=== PATIENT | male | born 1950 | race Hispanic/Latino ===

== ENCOUNTER → 2017-11-21 | Day surgery (SDC) | payer OTHER ==
[2017-11-20 09:51] LABS: BASOPHILS # (AUTO) 0.1 (0.0-0.1); BASOPHILS % 0.7 % (0.0-1.0); EOSINOPHILS # (AUTO) 0.2 (0.0-0.4); EOSINOPHILS % 2.7 % (0.0-6.0); HEMATOCRIT 46.4 % (38.2-49.6); LYMPHOCYTES # (AUTO) 1.2 (1.0-3.2); LYMPHOCYTES % 16.1 % (18.0-39.1); MEAN CORPUSCULAR HEMOGLOBIN 30.1 pg (28-32); MEAN CORPUSCULAR HGB CONC 32.3 g/dL (31-35); MEAN CORPUSCULAR VOLUME 93.2 fL (81-99); MONOCYTES # (AUTO) 0.5 (0.2-0.8); MONOCYTES % 6.4 % (4.4-11.3); NEUTROPHILS # (AUTO) 5.7 (2.1-6.9); NEUTROPHILS % 73.7 % (38.7-80.0); PLATELET COUNT 238 x10e3/uL (140-360); RED BLOOD COUNT 4.98 x10e6/uL (4.3-5.7); RED CELL DISTRIBUTION WIDTH 12.7 % (11.7-14.4)
--- NOTE | 2017-11-20 10:40 | Diagnostic Imaging Report ---
PROCEDURE: X-RAY CHEST, TWO VIEWS COMPARISON: None. INDICATIONS: PRE OPERATIVE FOR SURGERY FINDINGS: The lungs are well-inflated. No focal consolidation, pleural effusion, or pneumothorax. Cardiomediastinal contour and pulmonary vasculature are within normal limits. Surgical clips project over the right upper quadrant of the abdomen compatible with prior cholecystectomy. No acute osseous abnormality. CONCLUSION: No acute cardiopulmonary abnormality. Dictated by: Vladimir Bernstein M.D. on 11/20/2017 at 10:49 Electronically approved by: Vladimir Bernstein M.D. on 11/20/2017 at 10:49
[~2017-11-21] MED LIST: AMLODIPINE BESYL5 MG PO; ASPIRIN325 MG PO; BACLOFEN10 MG PO; BUPIVACAINE HCL 0.5% INJ 30 ML VIAL INJ ONE; CEFAZOLIN SOD 1 GM VIAL ONE; DEXAMETHASONE SOD PHOS INJ 4 MG/ML VIAL ONE; FENTANYL CITRATE/PF 100MCG/2 ML INJ ONE; KETOROLAC TROMETHAMINE 30 MG/ML VIAL ONE; LIDOCAINE HCL 2% LOCAL INJ 5 ML SDV VIAL INJ ONE; MIDAZOLAM HCL 2 MG/2 ML VIAL ONE; NAPROSYN500 MG PO; NAPROXEN500 MG PO; NORCO 7.5-3251 EACH PO; ONDANSETRON HCL INJ 2 MG/ML VIAL ONE; PROPOFOL IV EMULSION 10 MG/ML 20 ML VIAL ONE; SEVOFLURANE INHAL SOLN 250 ML PEN BTL ONE
[2017-11-21 11:15] VITALS: BP 131/67
--- NOTE | 2017-11-21 13:00 | Operative Report ---
DATE OF PROCEDURE: November 21, 2017 SHREDDING MACHINE KNIFE CHANGER: Edmund Roach PA-C The patient was brought to the operating room for induction of anesthesia. Throughout this case, my PA's assistance was necessary for retraction of soft tissue and positioning of the extremity. This allows for efficient and technically successful execution of the operation and is considered medically necessary. PREOPERATIVE DIAGNOSIS: Complication of internal fixation, right tibia. POSTOPERATIVE DIAGNOSIS: Complication of internal fixation, right tibia. PROCEDURE PERFORMED: Removal of intramedullary nail, right tibia. INDICATIONS: The patient is a 67-year-old gentleman who has end-stage arthritis of his right knee. He has a retained intramedullary nail from an old tibial fracture. In order to prepare for a right total knee replacement, we planned on hardware removal of the right tibial nail. The risks and benefits have been explained. He states he understands and wishes to proceed. DESCRIPTION OF PROCEDURE: The patient was brought into the operating room and placed under general anesthetic. His right lower extremity was prepped and draped in a sterile manner. A preoperative time out was performed. The extremity was exsanguinated and a proximal tourniquet was inflated to 300 mmHg. An incision was made over the anterior aspect of the right knee. This utilized the previous scar. Ethibond stitches in the patellar tendon were excised. The patellar tendon was incised in line with its fibers. A small curette was used to debride bone that had grown over the top of the intramedullary nail. Once this was carefully exposed, an extraction device was applied to the threads of the proximal nail. This nail was then removed with a mallet. Intraoperative x-rays confirmed no evidence of a fracture and complete removal of the hardware. The wound was irrigated and closed. A sterile bandage was applied. The patient was extubated and transported to the recovery room in stable condition. There was no blood loss and all needle and sponge counts were correct. Job#: [id number] JUAN
--- OUTSIDE RECORDS SUMMARY | 2017-11-28 12:15 | XMS REPORT ---
Author Author [facility] Address Unknown Phone Unavailable Care Team Providers Care Chicken Stuffer Name Role Phone VLADIMIR YANCEY Unavailable Unavailable Problems This patient has no known problems. Allergies, Adverse Reactions, Alerts This patient has no known allergies or adverse reactions. Medications This patient has no known medications. Results Test Description Test Time Test Comments Text Results Atomic Results Result Comments CHEST 2 VIEWS 2017-11-20 10:49:00 [place] [id number] Patient Name: MELISSA KERR MR #: [id number] : 1950 Age/Sex: 67/M Req #: [id number] [facility] Physician: Ordered by: VLADIMIR YANCEY MD Report #: [id number] Location: OR Room/Bed: Procedure: [id number] DX/CHEST 2 VIEWS Exam Date: 11/20/17 Exam Time: 1011 REPORT STATUS: Signed PROCEDURE: X-RAY CHEST, TWO VIEWS COMPARISON: None. INDICATIONS: PRE OPERATIVE FOR SURGERY FINDINGS: The lungs are well-inflated. No focal consolidation, pleural effusion, or pneumothorax. Cardiomediastinal contour and pulmonary vasculature are within normal limits. Surgical clips project over the right upper quadrant of the abdomen compatible with prior cholecystectomy. No acute osseous abnormality. CONCLUSION: No acute cardiopulmonary abnormality. Dictated by: Vladimir Meyer M.D. on 11/20/2017 at 10:49 Electronically approved by: Vladimir Meyer M.D. on 11/20/2017 at 10:49 Dictated By: VLADIMIR MEYER MD Transcribed By: ERIBERTO on 11/20/179 COPY TO: VLADIMIR YANCEY MD
== END | disposition home or self-care (01) ==
LOC: OR 06:27
PROVIDERS: ATTEND Specialist
DX: T84.498A Other mechanical complication of other internal orthopedic devices, implants and grafts, initial encounter (principal); M17.11 Unilateral primary osteoarthritis, right knee; M06.9 Rheumatoid arthritis, unspecified; M19.90 Unspecified osteoarthritis, unspecified site; R05 Cough; I10 Essential (primary) hypertension; Y83.8 Other surgical procedures as the cause of abnormal reaction of the patient, or of later complication, without mention of misadventure at the time of the procedure; Z01.810 Encounter for preprocedural cardiovascular examination; Z01.812 Encounter for preprocedural laboratory examination; Z01.818 Encounter for other preprocedural examination; Z96.652 Presence of left artificial knee joint
CPT/HCPCS: 20680; 36415; 71046; 76000; 85025; 93005; J0690; J1100; J1885; J2001; J2250; J2405

== ENCOUNTER 2018-01-29 06:40 | Observation (INO) | payer OTHER ==
[~2018-01-29] VITALS: Ht 167.6 cm; Wt 88.5 kg
[~2018-01-29 06:40] MED LIST changes: -BUPIVACAINE HCL 0.5% INJ 30 ML VIAL INJ ONE; -CEFAZOLIN SOD 1 GM VIAL ONE; -DEXAMETHASONE SOD PHOS INJ 4 MG/ML VIAL ONE; -FENTANYL CITRATE/PF 100MCG/2 ML INJ ONE; -KETOROLAC TROMETHAMINE 30 MG/ML VIAL ONE; -LIDOCAINE HCL 2% LOCAL INJ 5 ML SDV VIAL INJ ONE; -MIDAZOLAM HCL 2 MG/2 ML VIAL ONE; -ONDANSETRON HCL INJ 2 MG/ML VIAL ONE; -PROPOFOL IV EMULSION 10 MG/ML 20 ML VIAL ONE; +ROPIVACAINE 246.25 MG, EPINEPHRINE HCL 1:1000 0.5 MG, CLONIDINE HCL 0.08 MG, KETOROLAC ... INJ ONE; -SEVOFLURANE INHAL SOLN 250 ML PEN BTL ONE
[2018-01-29] MEDS ORDERED: CEFAZOLIN SOD 2 GM/D5W 50ML 50 ML IV ONE (07:23)
[2018-01-29] MEDS ORDERED: GABAPENTIN 300 MG CAP ONE (07:42)
[2018-01-29] MEDS ORDERED: CELECOXIB 200 MG CAP ONE (07:42)
[2018-01-29] MEDS ORDERED: DEXAMETHASONE SOD PHOS 10 MG/1 ML VIAL ONE (07:42)
[2018-01-29] MEDS ORDERED: BACITRACIN 50,000 UNIT VIAL ONE (08:22)
[2018-01-29] MEDS ORDERED: TRANEXAMIC ACID 1,000 MG/10 ML ML ONE ×2 (08:22→08:41)
[2018-01-29] MEDS ORDERED: KETOROLAC TROMETHAMINE 30 MG/ML VIAL IV PRN (10:15)
[2018-01-29] MEDS ORDERED: DOCUSATE SODIUM 100 MG CAP PO PRN (10:15)
[2018-01-29] MEDS ORDERED: ONDANSETRON HCL INJ 2 MG/ML VIAL IV PRN (10:15)
[2018-01-29] MEDS ORDERED: HYDROCODONE/APAP 5MG-325MG TAB PO PRN (10:15)
[2018-01-29] MEDS ORDERED: ACETAMINOPHEN 650 MG SUPP PR PRN (10:15)
[2018-01-29] MEDS ORDERED: HYDROCODONE/APAP 7.5MG-325MG 1 EA TAB PO PRN (10:15)
[2018-01-29] MEDS ORDERED: PROMETHAZINE HCL (IM) 25 MG/ML VIAL IM PRN (10:15)
[2018-01-29] MEDS ORDERED: DIPHENHYDRAMINE HCL INJ 50 MG/ML VIAL IM/IV PRN (10:15)
[2018-01-29] MEDS ORDERED: HYDROMORPHONE 2MG/ML 2 MG/ML ML ONE (10:43)
[2018-01-29] MEDS: ACETAMINOPHEN 1000 MG/100 ML IV SCH ×2 (12:00→18:02)
--- NOTE | 2018-01-29 13:04 | Operative Report ---
DATE OF PROCEDURE: January 29, 2018 [employer]YNAM[employer] DEVELOPER: Edmund Roach PA-C The patient was brought to the operating room for induction of anesthesia. Throughout this case, my PA's assistance was necessary for retraction of soft tissue and positioning of the extremity. This allows for efficient and technically successful execution of the operation and is considered medically necessary. PREOPERATIVE DIAGNOSIS: Osteoarthritis, right knee. POSTOPERATIVE DIAGNOSIS: Osteoarthritis, right knee. PROCEDURE: Right total knee arthroplasty, *previously operated knee. INDICATIONS: The patient is a 67-year-old gentleman who has end-stage arthritis of his right knee. He has failed conservative management and would like to proceed with a right total knee replacement. His past history is significant for a previous placement of an intramedullary nail. This was subsequently removed. He has gone on to heal these incisions without signs of infection. DESCRIPTION OF PROCEDURE: The patient was brought to the operating room and placed under general anesthetic. He received prophylactic antibiotics, a regional block, and transexamic acid in the holding area. His right lower extremity was prepped and draped in a sterile manner. A preoperative time out was performed. The extremity was exsanguinated, and a proximal tourniquet was inflated to 300 mmHg. An anterior approach with a medial parapatellar arthrotomy was performed. The previous tibial incision was incorporated. Care was taken to protect the patellar tendon insertion at the tibial tubercle. Soft-tissue releases were performed to bring the knee up into flexion. The meniscal remnants and marginal osteophytes were removed. An extramedullary cutting guide was used to resect the proximal tibia. The tibial baseplate was a size number 5. The central fin punch was impacted, and attention was directed towards the distal femur. An intramedullary cutting guide was used to resect the distal femur in 6 degrees of valgus and rotation referencing off of a combination of landmarks including Mark's line, the epicondylar axis and the posterior condyles. Throughout the case, a Vargas and Nephew Cherise II posterior stabilized knee system was used. The femoral component was a size number 6. The anterior and posterior cuts were made. Trial reductions were performed. A 9-mm ultracongruent tibial insert provided appropriate soft-tissue balancing in flexion and full extension. The patella was resurfaced with a 32-mm x 7.5-mm patellar button. The thickness was checked before and after resurfacing and was right at 22 mm. Patellar tracking was noted to be concentric. The trial implants were removed. A 100-mL premixed pericapsular injection was placed into the surrounding soft tissue. The knee was thoroughly irrigated with a shower-tip pulsatile lavage. The components were cemented into place using a single mix of high-viscosity Simplex cement preloaded with antibiotics. Care was taken to remove extravasated cement. The wound was further irrigated while the cement cured. The arthrotomy was closed with interrupted #1 Ethibond. The knee was put through flexion and extension to ensure a secure closure. The skin was closed with subcuticular Vicryl and gloria. A sterile bandage was applied. Estimated blood loss was minimal. All needle and sponge counts were correct. The patellar tendon insertion at the tibial tubercle remained sturdy and intact throughout the case. Job#: [id number]
--- NOTE | 2018-01-29 13:11 | Diagnostic Imaging Report ---
RIGHT KNEE - 2 IMAGES HISTORY: Osteoarthrosis, postop COMPARISON: None available. FINDINGS: Bones: No acute displaced fracture. No aggressive osseous lesion. Joints: Status post total knee arthroplasty. Soft tissues: Regional soft tissue swelling, air foci, an anterior metallic skin gloria. IMPRESSION: Status post total knee arthroplasty. Signed by: Dr. Wenceslao Bey D.O., M.M.M. on 01/29/2018 1:08 PM
[2018-01-29] MEDS ORDERED: PROPOFOL IV EMULSION 10 MG/ML 20 ML VIAL ONE (14:13)
[2018-01-29] MEDS ORDERED: ONDANSETRON HCL INJ 2 MG/ML VIAL ONE (14:13)
[2018-01-29] MEDS ORDERED: LIDOCAINE HCL 2% LOCAL INJ 5 ML SDV VIAL INJ ONE (14:13)
--- NOTE | 2018-01-29 15:50 | NUR ---
received to rm aaox3 no distress noted, denies pain at this time, dsg to right knee c/d/i, ivf infusing to r fa 20g no ss of infiltration noted, updated on poc voiced understanding, oriented to rm, call light in reach will continue to monitor
[2018-01-29 16:43] VITALS: BP 126/70
[2018-01-29] MEDS ORDERED: CELECOXIB 100 MG CAP PO SCH (17:00)
[2018-01-29 17:34] VITALS: BP 126/70
[2018-01-29] MEDS: CEFAZOLIN SOD 1 GM/D5W 50ML 50 ML IV SCH (18:00)
[2018-01-29] MEDS: ASPIRIN 325 MG TAB PO SCH (18:01)
[2018-01-29] MEDS: CELECOXIB 200 MG CAP PO SCH (18:01)
[2018-01-29] MEDS ORDERED: FENTANYL CITRATE/PF 100MCG/2 ML INJ ONE (18:02)
[2018-01-29] MEDS ORDERED: MIDAZOLAM HCL 2 MG/2 ML VIAL ONE (18:02)
[2018-01-29] MEDS: SODIUM CHLORIDE 0.9% 1000ML 1,000 ML IV SCH ×2 (18:39→20:14)
[2018-01-29 20:00] VITALS: BP 116/63
[2018-01-29] MEDS ORDERED: ZOLPIDEM TARTRATE 5 MG TAB PO PRN (21:00)
[2018-01-30] VITALS (7 sets, daily range): BP systolic 116–134; BP diastolic 65–71
[2018-01-30] MEDS: ACETAMINOPHEN 1000 MG/100 ML IV SCH ×2 (00:05→05:39)
[2018-01-30] MEDS: CEFAZOLIN SOD 1 GM/D5W 50ML 50 ML IV SCH ×2 (00:37→08:20)
[2018-01-30 05:46] LABS: HEMATOCRIT 38.4 % (38.2-49.6); HEMOGLOBIN 12.7 g/dL (14.0-18.0)
[2018-01-30] MEDS: SODIUM CHLORIDE 0.9% 1000ML 1,000 ML IV SCH (06:14)
--- NOTE | 2018-01-30 08:40 | NUR ---
patient resting in bed, AA0x3, pain 3/10 on right knee, call light in reach, no distress noted
[2018-01-30] MEDS: ASPIRIN 325 MG TAB PO SCH (08:46)
[2018-01-30] MEDS: CELECOXIB 200 MG CAP PO SCH (08:46)
[2018-01-30] MEDS ORDERED: NON-FORMULARY MEDICATION (Naproxen 500 MG) PO SCH (09:00)
[2018-01-30] MEDS ORDERED: AMLODIPINE BESYLATE 5 MG TAB PO SCH (09:00)
[2018-01-30] MEDS ORDERED: NAPROXEN 250 MG TAB PO PRN (09:15)
[2018-01-30] MEDS ORDERED: ACETAMINOPHEN 1000 MG/100 ML IV PRN (10:15)
[2018-01-30] MEDS ORDERED: ASPIRIN325 MG PO (12:25)
--- NOTE | 2018-01-30 14:16 | NUR ---
ROSI MET WITH PT AND VIA GUM ROLLING MACHINE TENDER REGARDING DC PLANS PT LIVES WITH HIS IN A HOUSE IN [place] PT HAS A WALKER WITH WHEELS AND 3 IN 1 COMMODE AT HOME DISCHARGE PLANS PRE-ARRANGED BY JOÃO AT DR YANCEY'S OFFICE FOLLOWS: CPM ORDERED THRU THER[facility] [phone] ROSI SPOKE WITH [facility] WHO CONFIRMS THAT THEY HAVE ORDERS AND WILL DELIVER HOME HEALTH AND PHYSCIAL THERAPY ARRANGED WITH [facility] [phone] ROSI SPOKE WITH RAKEL CASTELLANOS WHO CONFIRMS SHE HAS ORDERS AND WILL ADMIT PT ON 01/31 CLINICAL INFORMATION FAXED TO [phone]; CONFIRMATION REC'D
[2018-01-30] MEDS ORDERED: NORCO 7.5-3251 EACH PO (15:50)
--- NOTE | 2018-01-30 16:47 | NUR ---
patient discharged home, pain 03/25 on rt knee, prescription given, patient verbalized understanding about medications, side effects and f/up appointments, family at bed side giving ride, dressing is intact , not in any distress,IV Canula removed with tip intact , no redness or swelling noted, transported via wheelchair to [facility]
== END 2018-01-30 16:39 | disposition home health service (06) ==
LOC: OR 06:40 → PACU V 10:16 → MED/SURG 15:50
PROVIDERS: ADMIT Specialist; ATTEND Specialist
DX: M17.11 Unilateral primary osteoarthritis, right knee (principal); Z96.652 Presence of left artificial knee joint; I10 Essential (primary) hypertension; Z82.49 Family history of ischemic heart disease and other diseases of the circulatory system
CPT/HCPCS: 27447; 36415; 73560; 85014; 85018; 86850; 86900; 86920; 97116 ×2; 97161; C1713; G0378 ×2; G8978; G8979; J0131 ×2; J0171; J0690 ×3; J1100; J1170; J1885 ×2; J2001; J2250; J2405; J2704; J2795; J7030; P9016

== ENCOUNTER → 2018-09-26 | Outpatient (CLI) | payer MEDICARE ==
[~2018-09-26] MED LIST changes: +GABAPENTIN300 MG PO; +IBUPROFEN400 MG PO; +LEXAPRO10 MG PO; +OMEPRAZOLE40 MG PO; -ROPIVACAINE 246.25 MG, EPINEPHRINE HCL 1:1000 0.5 MG, CLONIDINE HCL 0.08 MG, KETOROLAC ... INJ ONE
--- NOTE | 2018-09-26 21:30 | Diagnostic Imaging Report ---
Labeled WBC Study Reason for exam: Mesh complication of knee prothesis. Right knee arthroplasty in 01/2018. Patient sustained a fall in 05/2018 with subsequent right knee pain that persists. Comparison: Report: The patient's own white blood cells were labeled with Tc-99m HMPAO 27.5 mCi by a commercial radiopharmacy. Images of the knees in orthogonal projections were obtained at 4 hours post administration of the labeled white blood cells. Increased tracer activity surrounds the femoral component of the right knee prosthesis and is seen at the inferior tip of the tibial component, as expected in prosthesis that was placed less than one year ago. Diffusely increased tracer overlies the distal portion of the femoral shaft anteriorly although the tibia and overlying soft tissue anteriorly appear normal on the lateral and medial projections of the femur. IMPRESSION: Cannot exclude soft tissue inflammatory process in soft tissue anterior to the distal portion of the right femur above the prosthesis. No convincing scan evidence of infection along the prosthesis in this prosthesis that was placed less than 12 months ago. Signed by: Dr. Lyn Garza M.D. on 09/26/2018 9:26 PM
== END ==
LOC: NM 07:20
PROVIDERS: ATTEND Specialist
DX: Z96.651 Presence of right artificial knee joint (principal); T84.092D Other mechanical complication of internal right knee prosthesis, subsequent encounter; M25.561 Pain in right knee
CPT/HCPCS: 78806; A9521; A9556; A9570

== ENCOUNTER 2018-10-22 07:05 | Inpatient (IN) | payer MEDICARE ==
[~2018-10-22] VITALS: Ht 160 cm; Wt 69.1 kg
[2018-10-22] MEDS ORDERED: ROPIVACAINE 246.25 MG, EPINEPHRINE HCL 1:1000 1ML 0.5 MG, CLONIDINE HCL 0.08 MG, KETORO... INJ ONE ×5 (07:30)
[2018-10-22] MEDS ORDERED: DEXAMETHASONE SOD PHOS 10 MG/1 ML VIAL ONE (07:52)
[2018-10-22] MEDS ORDERED: CELECOXIB 200 MG CAP ONE (07:52)
[2018-10-22] MEDS ORDERED: VANCOMYCIN 1GM/NS 250 ML 250 ML ONE (07:53)
[2018-10-22] MEDS ORDERED: GABAPENTIN 300 MG CAP ONE (07:53)
[2018-10-22] MEDS ORDERED: VANCOMYCIN HCL ONE (09:30)
[2018-10-22] MEDS ORDERED: TOBRAMYCIN 40 MG/ML 2ML VIAL ONE (09:30)
[2018-10-22] MEDS ORDERED: BACITRACIN 50,000 UNIT VIAL ONE (09:30)
[2018-10-22] MEDS ORDERED: TRANEXAMIC ACID 1,000 MG/10 ML ML ONE (09:30)
[2018-10-22] MEDS ORDERED: SODIUM CHLORIDE 0.9% 500ML 500 ML ONE (09:33)
[2018-10-22] MEDS ORDERED: SODIUM CHLORIDE 0.9% 250ML 250 ML ONE (10:02)
[2018-10-22] MEDS ORDERED: KETOROLAC TROMETHAMINE 30 MG/ML VIAL IV PRN (12:30)
[2018-10-22] MEDS ORDERED: HYDROCODONE/APAP 5MG-325MG TAB PO PRN (12:30)
[2018-10-22] MEDS ORDERED: DOCUSATE SODIUM 100 MG CAP PO PRN (12:30)
[2018-10-22] MEDS ORDERED: ZOLPIDEM TARTRATE 5 MG TAB PO PRN (12:30)
[2018-10-22] MEDS ORDERED: ACETAMINOPHEN 650 MG SUPP PR PRN (12:30)
[2018-10-22] MEDS ORDERED: ONDANSETRON HCL INJ 2MG/ML 2ML 2 MG/ML VIAL IV PRN (12:30)
[2018-10-22] MEDS ORDERED: PROMETHAZINE HCL (IM) 25 MG/ML VIAL INJ PRN (12:30)
[2018-10-22] MEDS ORDERED: DIPHENHYDRAMINE HCL INJ 50 MG/ML VIAL IM/IV PRN (12:30)
[2018-10-22] MEDS ORDERED: MORPHINE SULFATE INJ 4 MG/ML INJ 1ML ONE (12:55)
--- NOTE | 2018-10-22 13:23 | NUR ---
received report from PACU nurse, pt being transferred to room 103
--- NOTE | 2018-10-22 13:32 | NUR ---
received pt to room 103, pt laying in bed, awake, alert, in stable condition, daughter at bedside, will continue to assess
[2018-10-22] MEDS ORDERED: ROPIVACAINE 0.5% 5 MG/ML 30 ML SDV ONE (13:55)
[2018-10-22] MEDS ORDERED: LIDOCAINE 2% /EPINEPHRINE 20 ML SDV INJ ONE (13:55)
[2018-10-22 14:11] VITALS: BP 148/78
[2018-10-22] MEDS ORDERED: LIDOCAINE HCL 2% LOCAL INJ 5 ML SDV VIAL INJ ONE (14:32)
[2018-10-22] MEDS ORDERED: ONDANSETRON HCL INJ 2MG/ML 2ML 2 MG/ML VIAL ONE (14:32)
[2018-10-22] MEDS ORDERED: SEVOFLURANE INHAL SOLN 250 ML PEN BTL ONE (14:32)
[2018-10-22] MEDS ORDERED: PROPOFOL IV EMULSION 10 MG/ML 20 ML VIAL ONE (14:32)
[2018-10-22] MEDS ORDERED: DEXAMETHASONE SOD PHOS INJ 4 MG/ML VIAL ONE (14:32)
--- NOTE | 2018-10-22 14:35 | Diagnostic Imaging Report ---
EXAMINATION: KNEE RIGHT 1-2 VIEWS INDICATION: Postoperative COMPARISON: Right knee radiographs of 01/29/2018 FINDINGS: Portable AP and lateral radiographs of the right knee demonstrate postoperative changes of right total knee arthroplasty revision. Alignment is near-anatomic. No unexpected fracture. Postoperative subcutaneous emphysema and small joint effusion. Surgical skin gloria in place. IMPRESSION: Anatomic alignment status post right total knee arthroplasty revision. Signed by: Jonny Whitaker MD on 10/22/2018 2:32 PM
[2018-10-22 14:37] VITALS: BP 148/78
[2018-10-22] MEDS: HYDROCODONE/APAP 7.5MG-325MG 1 EA TAB PO PRN (14:49)
--- NOTE | 2018-10-22 15:00 | NUR ---
DR MCCRAY AND DR JUÁREZ NOTIFIED OF NEW ADMISSION
[2018-10-22 16:04] VITALS: BP 135/74
[2018-10-22 16:22] LABS: BASOPHILS % 0.1 % (0.0-1.0); HEMATOCRIT 37.1 % (38.2-49.6); HEMOGLOBIN 11.9 g/dL (14.0-18.0); LYMPHOCYTES # (AUTO) 0.6 (1.0-3.2); LYMPHOCYTES % 4.1 % (18.0-39.1); MEAN CORPUSCULAR HEMOGLOBIN 26.7 pg (28-32); MEAN CORPUSCULAR HGB CONC 32.1 g/dL (31-35); MEAN CORPUSCULAR VOLUME 83.4 fL (81-99); MONOCYTES # (AUTO) 0.2 (0.2-0.8); MONOCYTES % 1.2 % (4.4-11.3); NEUTROPHILS # (AUTO) 12.8 (2.1-6.9); NEUTROPHILS % 94.2 % (38.7-80.0); PLATELET COUNT 296 x10e3/uL (140-360); RED BLOOD COUNT 4.45 x10e6/uL (4.3-5.7); RED CELL DISTRIBUTION WIDTH 14.9 % (11.7-14.4)
[2018-10-22 16:42] LABS: ALANINE AMINOTRANSFERASE 17 IU/L (0-55); ALBUMIN 3.2 g/dL (3.5-5.0); ALBUMIN/GLOBULIN RATIO 0.8 (0.8-2.0); ALKALINE PHOSPHATASE 55 IU/L (40-150); ANION GAP 13.3 mmol/L (8-16); BLOOD UREA NITROGEN 15 mg/dL (7-26); BUN/CREATININE RATIO 17 (6-25); CALCIUM 9.3 mg/dL (8.4-10.2); CARBON DIOXIDE 27 mmol/L (22-29); CHLORIDE 100 mmol/L (98-107); CREATININE, SERUM 0.86 mg/dL (0.72-1.25); EST GLOMERULAR FILTRATION RATE > 60 ML/MIN (60-); GLUCOSE 204 mg/dL (74-118); POTASSIUM 5.3 mmol/L (3.5-5.1); SODIUM 135 mmol/L (136-145)
[2018-10-22] MEDS: ACETAMINOPHEN 1000 MG/100 ML IV SCH (17:15)
[2018-10-22] MEDS: ASPIRIN 325 MG TAB PO SCH (17:15)
[2018-10-22] MEDS: SODIUM CHLORIDE 0.9% 1000ML 1,000 ML IV SCH ×2 (17:15→20:09)
[2018-10-22] MEDS: CELECOXIB 200 MG CAP PO SCH (17:15)
--- NOTE | 2018-10-22 17:31 | NUR ---
DR SAMUELS OFFICE PREARRANGED FOLLOWING DISCHARGE PLAN OF: GOING HOME TO [address] [place] [address], [place] [address] PHONE [phone] HOME HEALTH WITH HOME CARE PROVIDERS CONFIRMED WITH [facility] [phone] DME 3 IN ONE COMMODE. AND CPM TO BE PROVIDED BY [facility] [phone] PT ALREADY HAS A WALKER AND WAS NOTIFIED HAS TO BE PRESENT FOR DISCHARGE.
[2018-10-22] MEDS ORDERED: MIDAZOLAM HCL 2 MG/2 ML VIAL ONE (18:36)
[2018-10-22] MEDS ORDERED: FENTANYL CITRATE/PF 100MCG/2 ML INJ ONE (18:36)
--- NOTE | 2018-10-22 18:44 | Operative Report ---
DATE OF PROCEDURE: 10/22/2018 SURGEON: Vladimir Gilmore MD OUTPATIENT PSYCHIATRIST: Edmund Roach, certified PA. PREOPERATIVE DIAGNOSIS: Infection, right total knee arthroplasty. POSTOPERATIVE DIAGNOSIS: Infection, right total knee arthroplasty. PROCEDURES: Right knee resection arthroplasty, extensive sharp irrigation and debridement, placement of temporary antibiotic prosthesis. INDICATIONS: The patient is a 68-year-old gentleman, who is status post a right total knee replacement in January 2018. He had a fall in June after which he had increased right knee pain. Since that time, he has been unable to make progress. He has noted to have chronic swelling around the knee. We have sent 2 different aspirations for culture, which have come back negative. He has an elevated erythrocyte sedimentation rate and a C-reactive protein. X-rays are unremarkable. Because of his limited motion and persistent pain, we have recommended right knee wound exploration with resection arthroplasty as indicated. The risks and benefits were explained. The possibility of a second-stage reconstruction was explained. He stated he understood and wished to proceed. PROCEDURE IN DETAIL: The patient was brought to the operating room. Antibiotics were held. He received tranexamic acid and a regional block in the holding area. His right lower extremity was prepped and draped in a sterile manner. A preoperative time-out was performed. The extremity was exsanguinated and a proximal tourniquet was inflated to 300 mmHg. An anterior incision utilizing the previous scar was made. Medial parapatellar arthrotomy was performed. No alex purulence was encountered. There was markedly thickened synovium throughout the knee. Synovial soft tissue was sent for frozen section. A complete synovectomy was performed. This allowed better mobilization of the knee. A lateral release was necessary for the patella to sharmila. The knee was brought up into flexion. Further synovectomy was performed. The soft tissue pathology report came back showing evidence of acute inflammation, but not consistent with any type of septic knee. Based on the gross findings, I elected to proceed with a resection arthroplasty. There was some fibrinous erosion into the lateral femoral condyle and the anterior tibia. Multiple cultures were sent prior to administering antibiotics. The distal femoral and proximal tibial components were carefully removed with osteotome and bone punches. The bone was debrided. There was further evidence that there was inflammatory reaction behind the prosthesis. The patellar component was also removed. All remaining bone cement was removed. The knee was thoroughly irrigated with a shower tip pulsatile lavage. The antibiotic prosthesis was opened on the back table. Palacos cement preloaded with gentamicin, but augmented with tobramycin and vancomycin was prepared on the back table. The temporary antibiotic prosthesis was cemented into place. The knee was brought out into full extension. The arthrotomy was closed with interrupted 0 Ethibond stitches. The skin was closed with subcuticular Vicryl and gloria. A sterile bandage and a knee immobilizer were applied. The patient was extubated and transported to the recovery room in stable condition. Blood loss was minimal and all needle and sponge counts were correct. Vladimir Gilmore MD DR/KATE /[id number]
--- NOTE | 2018-10-22 18:52 | NUR ---
report given to oncoming night warehouse selector RN, pt resting in bed, no distress noted, call light within reach, in stable condition.
--- NOTE | 2018-10-22 19:22 | Diagnostic Imaging Report ---
EXAMINATION: CHEST XRAY LINE PLACEMENT INDICATION: ^line placement ^[id number] ^1900 ^Y COMPARISON: Chest radiograph 11/20/2017 FINDINGS: AP view TUBES and LINES: Interval placement of a right PICC with tip overlying the mid SVC. LUNGS: Lungs are well inflated. Lungs are clear. There is no evidence of pneumonia or pulmonary edema. PLEURA: No pleural effusion or pneumothorax. HEART AND MEDIASTINUM: The cardiomediastinal silhouette is unremarkable.. BONES AND SOFT TISSUES: No acute osseous lesion. Soft tissues are unremarkable. UPPER ABDOMEN: No free air under the diaphragm. IMPRESSION: Interval placement of a right PICC with tip overlying the mid SVC. Recommend advancement of 2.5 cm. No pneumothorax. Signed by: Dr. Belinda Cotter M.D. on 10/22/2018 7:18 PM
[2018-10-22 19:30] VITALS: BP 135/74
[2018-10-22] MEDS: GABAPENTIN 300 MG CAP PO SCH (20:09)
[2018-10-22 20:22] VITALS: BP 135/72
[2018-10-22] MEDS: VANCOMYCIN 1GM/NS 250 ML 250 ML IV SCH (22:44)
[2018-10-23] VITALS (8 sets, daily range): BP systolic 118–139; BP diastolic 66–71
[2018-10-23] MEDS: ACETAMINOPHEN 1000 MG/100 ML IV SCH ×2 (00:04→05:10)
--- NOTE | 2018-10-23 01:11 | Consultation ---
DATE OF CONSULTATION: REASON FOR CONSULTATION: Infected knee. HISTORY OF PRESENT ILLNESS: This patient is a very pleasant 68-year-old male, who underwent surgery, total knee replacement back in January. The patient was doing well until about couple months ago, does have some pain in the knee, but then it has become red and swollen. He went to see Dr. Barrientos and the patient was diagnosed with infection. He was admitted. The patient underwent first step of two stages knee replacement. I was asked to see him to make recommendation in terms of antibiotic. The patient is currently lying in bed comfortably, and has no complaints. His family is at the bedside. At the present time, he denies any fever, chills, nausea, vomiting, diarrhea, urgency, frequency, or skin rash or any other joint problem. He had the surgery in January 29, 2018. MEDICATIONS: He is currently on Crosby, Protonix, Neurontin, Lexapro, Norvasc, Toradol, Celebrex, acetaminophen, aspirin, Colace, benadryl, vancomycin. ALLERGIES: NKA. LABORATORY DATA: White count 13.6, hemoglobin 11.9, and hematocrit 37. Electrolytes still pending. He had surgery earlier today as mentioned above. I do not have the report yet. Also, cultures were sent intraoperatively. PHYSICAL EXAMINATION: GENERAL: He is currently alert and oriented, does not seem to be in acute distress. VITAL SIGNS: Stable, currently afebrile. HEENT: He is not icteric. NECK: Supple. CHEST: Clear bilateral. HEART: S1 and S2. No S3, S4, or murmur. ABDOMEN: Soft. Bowel sounds present. No tenderness. No hepatosplenomegaly. EXTREMITIES: No edema. SKIN: There is no rash. All his symptoms within normal limits. IMPRESSION: Infected knee, which was removed. Agree with vancomycin, await culture and sensitivity to modify. Obtain sedimentation rate and C-reactive protein. We will talk with case management. We will discuss with Surgery, discussed with the patient answered all his question. MD ALMA ROSA Wright/KATE /[id number]
[2018-10-23 05:48] LABS: BASOPHILS % 0.1 % (0.0-1.0); EOSINOPHILS % 0.1 % (0.0-6.0); HEMATOCRIT 34.2 % (38.2-49.6); HEMOGLOBIN 10.7 g/dL (14.0-18.0); LYMPHOCYTES # (AUTO) 0.8 (1.0-3.2); LYMPHOCYTES % 6.7 % (18.0-39.1); MEAN CORPUSCULAR HEMOGLOBIN 26.2 pg (28-32); MEAN CORPUSCULAR HGB CONC 31.3 g/dL (31-35); MEAN CORPUSCULAR VOLUME 83.6 fL (81-99); MONOCYTES # (AUTO) 0.7 (0.2-0.8); NEUTROPHILS # (AUTO) 10.2 (2.1-6.9); NEUTROPHILS % 86.7 % (38.7-80.0); PLATELET COUNT 302 x10e3/uL (140-360); RED BLOOD COUNT 4.09 x10e6/uL (4.3-5.7); RED CELL DISTRIBUTION WIDTH 14.6 % (11.7-14.4)
[2018-10-23 06:14] LABS: ALANINE AMINOTRANSFERASE 27 IU/L (0-55); ALBUMIN 2.8 g/dL (3.5-5.0); ALBUMIN/GLOBULIN RATIO 0.8 (0.8-2.0); ALKALINE PHOSPHATASE 50 IU/L (40-150); ANION GAP 12.2 mmol/L (8-16); BLOOD UREA NITROGEN 11 mg/dL (7-26); BUN/CREATININE RATIO 15 (6-25); CALCIUM 8.9 mg/dL (8.4-10.2); CARBON DIOXIDE 25 mmol/L (22-29); CHLORIDE 106 mmol/L (98-107); CREATININE, SERUM 0.71 mg/dL (0.72-1.25); EST GLOMERULAR FILTRATION RATE > 60 ML/MIN (60-); GLUCOSE 139 mg/dL (74-118); POTASSIUM 4.2 mmol/L (3.5-5.1); SODIUM 139 mmol/L (136-145)
--- NOTE | 2018-10-23 07:07 | NUR ---
pt awake resp even and unlabored a this time no distress noted, pt has family at beside , pt able to make needs known call light in reach.
[2018-10-23] MEDS: AMLODIPINE BESYLATE 5 MG TAB PO SCH (08:58)
[2018-10-23] MEDS: GABAPENTIN 300 MG CAP PO SCH ×3 (08:58→20:29)
[2018-10-23] MEDS: ASPIRIN 325 MG TAB PO SCH ×2 (08:58→16:58)
[2018-10-23] MEDS: CELECOXIB 200 MG CAP PO SCH ×2 (08:58→16:58)
[2018-10-23] MEDS: ESCITALOPRAM OXALATE 10 MG TAB PO SCH (08:58)
[2018-10-23] MEDS: PANTOPRAZOLE SOD 40 MG TABEC PO SCH (08:58)
[2018-10-23] MEDS: HYDROCODONE/APAP 7.5MG-325MG 1 EA TAB PO PRN ×2 (09:05→16:58)
[2018-10-23] MEDS ORDERED: ACETAMINOPHEN 1000 MG/100 ML IV PRN (12:30)
[2018-10-23] MEDS: VANCOMYCIN 1GM/NS 250 ML 250 ML IV SCH (12:30)
--- NOTE | 2018-10-23 13:35 | NUR ---
Visit made by the Spiritual Care Department Pastoral Visitor, Alina Leach. PV provided pastoral presence, prayer, hospitality, and supportive listening. Pastoral Visitor informed pt/family of the scope of [employer] Services and availability. JAELYN HUNT [employer] Spiritual Care Department O: [phone] Pager: [phone] ([phone] number calling from)
--- NOTE | 2018-10-23 16:36 | NUR ---
ORDERS RECEIVED FOR IV VANCOMYCIN Q 12 AT HOME X 8 WEEKS CHOICE LETTER SIGNED BY PT FOR [facility] COPY OF CHOICE LETTER TO PT AND ORIGINAL ON CHART PATIENT ADDRESS WHERE SERVICE WILL BE RECEIVED: [address] [place] [id number] PATIENT CONTACT NUMBER: [phone] NAME OF HOME HEALTH COMPANY: [facility] TELEPHONE/FAX NUMBER OF COMPANY: [phone] ADDRESS OF COMPANY: [address] [place] [address] SERVICES TO RECEIVE: VANCOMYCIN 1 GM IV Q 12 HRS X 8 WEEKS WEEKLY CBC, CHEM PANEL, VANCO TROUGH ANTICIPATED DATE SERVICES WILL BEGIN: Monday10/25/18 PLEASE CALL THE COMPANY ABOVE IF YOU HAVE NOT RECEIVED A CALL TO SCHEDULE A HOME VISIT WITHIN 24 HOURS OF DISCHARGE
--- NOTE | 2018-10-23 19:00 | NUR ---
RECEIVED PATIENT IN BEDSIDE SHIFT REPORT. PATIENT REPORTS VERY MINIMAL PAIN. NO S&S OF DISTRESS NOTED. BED LOCKED IN LOWEST POSITION, SIDE RAILS UPX2, CALL LIGHT IN REACH.
--- NOTE | 2018-10-23 19:25 | NUR ---
Report given to oncoming nurse pt stable.
[2018-10-24 00:13] VITALS: BP 116/66
[2018-10-24 04:52] VITALS: BP 134/80
--- NOTE | 2018-10-24 05:30 | NUR ---
PATIENT RESTING, BREATHING EVEN AND NON-LABORED. NO PAIN REPORTED. CALL LIGHT IN REACH.
[2018-10-24 05:59] LABS: BASOPHILS # (AUTO) 0.1 (0.0-0.1); BASOPHILS % 0.6 % (0.0-1.0); EOSINOPHILS # (AUTO) 0.2 (0.0-0.4); EOSINOPHILS % 2.4 % (0.0-6.0); HEMATOCRIT 34.3 % (38.2-49.6); HEMOGLOBIN 10.8 g/dL (14.0-18.0); LYMPHOCYTES # (AUTO) 1.1 (1.0-3.2); LYMPHOCYTES % 13.4 % (18.0-39.1); MEAN CORPUSCULAR HEMOGLOBIN 26.3 pg (28-32); MEAN CORPUSCULAR HGB CONC 31.5 g/dL (31-35); MEAN CORPUSCULAR VOLUME 83.7 fL (81-99); MONOCYTES # (AUTO) 0.7 (0.2-0.8); NEUTROPHILS # (AUTO) 6.3 (2.1-6.9); NEUTROPHILS % 75.4 % (38.7-80.0); PLATELET COUNT 294 x10e3/uL (140-360)
[2018-10-24 06:19] LABS: ANION GAP 11.9 mmol/L (8-16); BLOOD UREA NITROGEN 14 mg/dL (7-26); BUN/CREATININE RATIO 18 (6-25); CALCIUM 8.8 mg/dL (8.4-10.2); CARBON DIOXIDE 29 mmol/L (22-29); CHLORIDE 102 mmol/L (98-107); CREATININE, SERUM 0.79 mg/dL (0.72-1.25); EST GLOMERULAR FILTRATION RATE > 60 ML/MIN (60-); GLUCOSE 106 mg/dL (74-118); POTASSIUM 3.9 mmol/L (3.5-5.1); SODIUM 139 mmol/L (136-145)
--- NOTE | 2018-10-24 07:10 | NUR ---
RECEIVED PATIENT RESTING IN BED NO SIGNS OF DISTRESS. BED LOW, WHEELS LOCKED, SIDE RAILS X2. CALL LIGHT IN REACH WILL CONTINUE TO MONITOR PATIENT.
[2018-10-24 07:33] VITALS: BP_SYST 135; BP_SYST 99; BP_DIAS 46; BP_DIAS 77
[2018-10-24] MEDS: AMLODIPINE BESYLATE 5 MG TAB PO SCH (08:03)
[2018-10-24] MEDS: ESCITALOPRAM OXALATE 10 MG TAB PO SCH (08:03)
[2018-10-24] MEDS: GABAPENTIN 300 MG CAP PO SCH ×2 (08:03→14:10)
[2018-10-24] MEDS: PANTOPRAZOLE SOD 40 MG TABEC PO SCH (08:03)
[2018-10-24] MEDS: CELECOXIB 200 MG CAP PO SCH ×2 (08:03→16:46)
[2018-10-24] MEDS: ASPIRIN 325 MG TAB PO SCH ×2 (08:03→16:46)
[2018-10-24] MEDS ORDERED: ONDANSETRON HCL 4 MG ORAL DISINTEGRATING TAB PO PRN (08:30)
[2018-10-24 08:36] VITALS: BP 135/77
--- NOTE | 2018-10-24 09:18 | NUR ---
EDUCATED ABOUT IMM, SIGNED, FILED IN CHART, WITH COPY LEFT WITH FAMILY AT BEDSIDE.
--- NOTE | 2018-10-24 10:13 | NUR ---
PATIENT A/O 3, EVEN RESPIRATIONS ON RA. LUNG SOUNDS CLEAR TO AUSCULTATION. BOWEL SOUNDS PRESENT. NO EDEMA. RIGHT KNEE DRESSING C/D/I. IMMOBILIZER IN PLACE. IVAN HOSE AND FOOT PUMPS BILATERALLY. RIGHT UA PICC LINE INTACT. RIGHT FA [address]. VS STABLE. PATIENT AMBULATES WITH WALKER. CALL LIGHT IN REACH WILL CONTINUE TO MONITOR PATIENT.
[2018-10-24] MEDS ORDERED: VANCOMYCIN 1GM/NS 250 ML 250 ML IV SCH (12:00)
[2018-10-24 12:11] VITALS: BP 121/75
[2018-10-24] MEDS ORDERED: VANCOMYCIN HCL 1.5 GM in SODIUM CHLORIDE 0.9% 250ML 300 ML IV SCH (14:00)
[2018-10-24 15:40] VITALS: BP 111/65
--- NOTE | 2018-10-24 16:40 | NUR ---
REMOVED PATIENTS IV. CATHETER TIP INTACT AND PRESSURE DRESSING APPLIED.
--- NOTE | 2018-10-24 17:37 | NUR ---
PATIENT DISCHARGED FROM FACILITY. PATIENT GATHERED PERSONAL BELONGINGS, DISCHARGE INSTRUCTIONS AND FOLLOW UP INFORMATION. LEFT UNIT IN WHEELCHAIR AND WENT HOME VIA PRIVATE AUTO. NO SIGNS OF DISTRESS WHEN LEAVING FACILITY.
== END 2018-10-24 17:37 | disposition home or self-care (01) | DRG 468 ==
LOC: OR 07:05 → PACU V 12:33 → MED/SURG 13:36
PROVIDERS: ADMIT Specialist; ATTEND Specialist
PROC: 0SPC0JZ Removal of Synthetic Substitute from Right Knee Joint, Open Approach (ICD-10-PCS; 2018-10-22)
PROC: 0SBC0ZZ Excision of Right Knee Joint, Open Approach (ICD-10-PCS; 2018-10-22)
PROC: 02HV33Z Insertion of Infusion Device into Superior Vena Cava, Percutaneous Approach (ICD-10-PCS; 2018-10-22)
PROC: 0SRC0J9 Replacement of Right Knee Joint with Synthetic Substitute, Cemented, Open Approach (ICD-10-PCS; principal; 2018-10-22 10:00)
DX: T84.53XA Infection and inflammatory reaction due to internal right knee prosthesis, initial encounter (principal); M17.0 Bilateral primary osteoarthritis of knee; I10 Essential (primary) hypertension; D72.829 Elevated white blood cell count, unspecified; E87.8 Other disorders of electrolyte and fluid balance, not elsewhere classified; G62.9 Polyneuropathy, unspecified; Z90.49 Acquired absence of other specified parts of digestive tract; Z96.652 Presence of left artificial knee joint
CPT/HCPCS: 36415; 36569; 71045; 80048; 80053; 80202; 83036; 84443; 85025; 85651; 86140; 86850; 86900; 86920; 87071; 87075; 87102; 87205; 87206; 88305; 88331; 88332; 93005; 97139; C1713; C1776; J0171; J1100; J1885; J2001; J2250; J2270; J2405; J2795; J3010; J3260; J3370; J7030; J7040; J7050